=== PATIENT | male | born 1950 | race American Indian/Alaskan Native ===

== ENCOUNTER 2017-12-11 16:20 | Emergency (ER) | payer MEDICARE ==
[2017-12-11] MEDS ORDERED: NACL 0.9% 1000 ML 1,000 ML IV ONE (16:40)
--- NOTE | 2017-12-11 16:47 | Emergency Department Report ---
ED Altered Mental Status HPI - General Stated Complaint: POSS CVA Time Seen by Provider: 12/11/17 16:26 - History of Present Illness Initial Comments: 67-year-old man brought in by EMS for altered mental status, with report that patient was found at local auto repair shop, having just picked up his car, but had not left, and after 30 minutes, was found alone in his car unresponsive and diaphoretic. Patient is a diabetic, takes insulin, but had not recently been ill. Further, incident occurred in the middle of the day, which was hot and emanuel as well. EMS found blood sugar to be 58, gave patient 25 g of glucose intravenously, with patient rousing substantially by time of arrival in the emergency department. 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 He takes 20 units of long-acting insulin twice daily, does not take any mealtime doses. He took his usual dose of 20 units this morning, as well as his normal meal. He denies any other alterations or any other acute symptoms, has no pain, no shortness of breath, does not feel particularly weak. MD Complaint: altered mental status -: Sudden Time: 15:00 Severity: severe Context: diabetes Associated Symptoms: denies other symptoms Treatments Prior to Arrival: glucose, IV fluid, oxygen - Related Data Home Medications Medication Instructions Recorded Confirmed Last Taken Amaryl 4 mg PO BID 10/07/14 10/07/14 Unknown Aspirin 81 mg PO QDAY 10/07/14 10/07/14 Unknown Cialis 20 mg PO PRN PRN 10/07/14 10/07/14 Unknown Cozaar 100 mg PO QDAY 10/07/14 10/07/14 Unknown Crestor 20 mg PO QDAY 10/07/14 10/07/14 Unknown Lantus 15 unit SUB-Q QPM 10/07/14 10/07/14 Unknown Norvasc 10 mg PO QDAY 10/07/14 10/07/14 Unknown NovoLOG 100 UNITS/ML 7 unit SUB-Q TID 10/07/14 10/07/14 Unknown Plavix 75 mg PO QDAY 10/07/14 10/07/14 Unknown Terazosin 10 mg PO QDAY 10/07/14 10/07/14 Unknown Previous Rx's Medication Instructions Recorded Last Taken Type Aspirin [Aspirin BABY CHEW TAB] 81 mg PO QDAY #30 tab.chew 10/09/14 Unknown Rx Clopidogrel [Plavix] 75 mg PO QDAY #30 tablet 10/09/14 Unknown Rx Insulin Glargine [Lantus VIAL] 15 units SUB-Q QHS #30 units 10/09/14 Unknown Rx Terazosin [Hytrin] 10 mg PO QDAY capsule 10/09/14 Unknown Rx amLODIPine [Norvasc] 10 mg PO DAILY #30 tablet 10/09/14 Unknown Rx Allergies Allergy/AdvReac Type Severity Reaction Status Date / Time lisinopril Allergy Swelling Verified 10/07/14 10:29 atorvastatin calcium AdvReac MYALGIA Verified 10/07/14 10:29 [From Lipitor] ED Review of Systems ROS: Stated complaint: POSS CVA Other details as noted in HPI Comment: All other systems reviewed and negative Constitutional: diaphoresis, weakness. denies: chills, fever ENT: denies: ear pain, throat pain Respiratory: denies: cough, shortness of breath, wheezing Cardiovascular: denies: chest pain, palpitations Endocrine: no symptoms reported Gastrointestinal: denies: abdominal pain, nausea, diarrhea Genitourinary: denies: urgency, dysuria Musculoskeletal: denies: back pain, joint swelling, arthralgia Skin: denies: rash, lesions Neurological: denies: headache, weakness, paresthesias Psychiatric: denies: anxiety, depression ED Past Medical Hx - Past Medical History Hx Hypertension: Yes Hx CVA: Yes (no residual, no limitations) Hx Diabetes: Yes Additional medical history: hyperlipidemia - Surgical History Additional Surgical History: INTESTIONAL SURGERY-COLOSTOMY WITH REVERSAL (D/T CONSTIPATION) - Social History Smoking Status: Never Smoker - Medications Home Medications: Home Medications Medication Instructions Recorded Confirmed Last Taken Type Amaryl 4 mg PO BID 10/07/14 10/07/14 Unknown History Aspirin 81 mg PO QDAY 10/07/14 10/07/14 Unknown History Cialis 20 mg PO PRN PRN 10/07/14 10/07/14 Unknown History Cozaar 100 mg PO QDAY 10/07/14 10/07/14 Unknown History Crestor 20 mg PO QDAY 10/07/14 10/07/14 Unknown History Lantus 15 unit SUB-Q QPM 10/07/14 10/07/14 Unknown History Norvasc 10 mg PO QDAY 10/07/14 10/07/14 Unknown History NovoLOG 100 UNITS/ML 7 unit SUB-Q TID 10/07/14 10/07/14 Unknown History Plavix 75 mg PO QDAY 10/07/14 10/07/14 Unknown History Terazosin 10 mg PO QDAY 10/07/14 10/07/14 Unknown History Aspirin [Aspirin BABY CHEW TAB] 81 mg PO QDAY #30 tab.chew 10/09/14 Unknown Rx Clopidogrel [Plavix] 75 mg PO QDAY #30 tablet 10/09/14 Unknown Rx Insulin Glargine [Lantus VIAL] 15 units SUB-Q QHS #30 units 10/09/14 Unknown Rx Terazosin [Hytrin] 10 mg PO QDAY capsule 10/09/14 Unknown Rx amLODIPine [Norvasc] 10 mg PO DAILY #30 tablet 10/09/14 Unknown Rx ED Physical Exam - General General appearance: alert (on examination after glucose treatment), in no apparent distress - Head Head exam: Present: atraumatic, normocephalic - Eye Eye exam: Present: PERRL, EOMI - ENT ENT exam: Present: mucous membranes dry - Neck Neck exam: Present: normal inspection - Respiratory Respiratory exam: Present: normal lung sounds bilaterally. Absent: respiratory distress, wheezes, rales, rhonchi - Cardiovascular Cardiovascular Exam: Present: regular rate, normal heart sounds - GI/Abdominal GI/Abdominal exam: Present: soft. Absent: tenderness - Rectal Rectal exam: Present: deferred - Extremities Exam Extremities exam: Present: normal inspection, full ROM. Absent: tenderness - Back Exam Back exam: Present: normal inspection - Neurological Exam Neurological exam: Present: alert, oriented X3, CN II-XII intact. Absent: motor sensory deficit - Psychiatric Psychiatric exam: Present: normal affect, normal mood - Skin Skin exam: Present: warm, dry, intact. Absent: diaphoretic, erythema, petechiae , ecchymosis - Level of Consciousness 1a. Level of Consciousness: alert - LOC Questions 1b. LOC Questions: answers correctly - LOC Command 1c. LOC Commands: performs tasks correctly - Best Gaze 2. Best Gaze: normal - Visual 3. Visual: no visual loss - Facial Palsy 4. Facial Palsy: normal symmetrical movement - Motor Arm 5b. Motor Arm Right: no drift 5a. Motor Arm Left: no drift - Motor Leg 6a. Motor Leg Left: no drift 6b. Motor Leg Right: no drift - Limb Ataxia 7. Limb Ataxia: absent - Sensory 8. Sensory: normal - Best Language 9. Best Language: no aphasia - Dysarthria 10. Dysarthria: normal - Extinction and Inattention 11. Extinction/Inattention: no abnormality - Scoring Total Score: 0 Stroke Severity: No Stroke Symptoms ED Course Vital Signs 12/11/17 12/11/17 12/11/17 16:24 16:30 16:36 Temperature 36.4 C Pulse Rate 65 63 70 Respiratory 26 H 22 24 Rate Blood Pressure 174/91 196/99 O2 Sat by Pulse 98 98 Oximetry 12/11/17 12/11/17 12/11/17 17:08 17:30 18:00 Temperature Pulse Rate 63 68 79 Respiratory 27 H 14 14 Rate Blood Pressure O2 Sat by Pulse 100 96 100 Oximetry 12/11/17 12/11/17 12/11/17 18:30 19:00 19:38 Temperature Pulse Rate 80 70 Respiratory 14 22 Rate Blood Pressure 153/74 153/74 O2 Sat by Pulse 99 98 97 Oximetry - Reevaluation(s) Reevaluation #1: 12/11/17 20:00 On repeat examination at 1900 hrs., Patient neurologically and physically stable on recheck, being alert and oriented, with good recall, normal neurologic motor function all extremities and face, and physiologically stable. Laboratory Evaluation results reviewed, and patient was fed several servings of juice, and given a meal as well. He voices no complaints. On repeat examination at 2000 hrs., patient remains awake, alert, smiling, voices no complaints, and repeat blood sugar is 122. Patient is stable for discharge, advised to withhold insulin tonight, eat another snack in the evening , and he can resume his insulin in the morning if his blood glucose is over 150- 200. Physician recheck in the next 3-4 days recommended. - Lab Data Result diagrams: 12/11/17 17:02 12/11/17 17:02 Lab Results 12/11/17 12/11/17 12/11/17 Range/Units 16:34 17:02 17:02 WBC 5.5 (4.5-11.0) K/mm3 RBC 5.70 H (3.65-5.03) M/mm3 Hgb 16.4 H (11.8-15.2) gm/dl Hct 47.5 H (35.5-45.6) % MCV 83 L (84-94) fl MCH 29 (28-32) pg MCHC 35 H (32-34) % RDW 15.1 (13.2-15.2) % Plt Count 153 (140-440) K/mm3 Lymph % (Auto) 17.0 (13.4-35.0) % Morton % (Auto) 14.7 H (0.0-7.3) % Eos % (Auto) 0.4 (0.0-4.3) % Baso % (Auto) 0.4 (0.0-1.8) % Lymph # 0.9 L (1.2-5.4) K/mm3 Morton # 0.8 (0.0-0.8) K/mm3 Eos # 0.0 (0.0-0.4) K/mm3 Baso # 0.0 (0.0-0.1) K/mm3 Seg Neutrophils % 67.5 (40.0-70.0) % Seg Neutrophils # 3.7 (1.8-7.7) K/mm3 PT 16.4 H (12.2-14.9) Sec. INR 1.25 H (0.87-1.13) Sodium (137-145) mmol/L Potassium (3.6-5.0) mmol/L Chloride (98-107) mmol/L Carbon Dioxide (22-30) mmol/L Anion Gap mmol/L BUN (9-20) mg/dL Creatinine (0.8-1.5) mg/dL Estimated GFR ml/min BUN/Creatinine Ratio % Glucose (75-100) mg/dL POC Glucose 117 H (70-105) Lactic Acid (0.7-2.0) mmol/L Calcium (8.4-10.2) mg/dL Total Bilirubin (0.1-1.2) mg/dL AST (5-40) units/L ALT (7-56) units/L Alkaline Phosphatase (35-129) units/L Ammonia (25-60) umol/L Total Creatine Kinase (55-170) units/L Troponin T (0.00-0.029) ng/mL Total Protein (6.3-8.2) g/dL Albumin (3.9-5) g/dL Albumin/Globulin Ratio % TSH (0.270-4.200) mlU/mL Salicylates (2.8-20.0) mg/dL Acetaminophen (10.0-30.0) ug/mL Plasma/Serum Alcohol (0-0.07) % 12/11/17 12/11/17 12/11/17 Range/Units 17:02 17:02 17:02 WBC (4.5-11.0) K/mm3 RBC (3.65-5.03) M/mm3 Hgb (11.8-15.2) gm/dl Hct (35.5-45.6) % MCV (84-94) fl MCH (28-32) pg MCHC (32-34) % RDW (13.2-15.2) % Plt Count (140-440) K/mm3 Lymph % (Auto) (13.4-35.0) % Morton % (Auto) (0.0-7.3) % Eos % (Auto) (0.0-4.3) % Baso % (Auto) (0.0-1.8) % Lymph # (1.2-5.4) K/mm3 Morton # (0.0-0.8) K/mm3 Eos # (0.0-0.4) K/mm3 Baso # (0.0-0.1) K/mm3 Seg Neutrophils % (40.0-70.0) % Seg Neutrophils # (1.8-7.7) K/mm3 PT (12.2-14.9) Sec. INR (0.87-1.13) Sodium 135 L (137-145) mmol/L Potassium 3.6 (3.6-5.0) mmol/L Chloride 96.8 L (98-107) mmol/L Carbon Dioxide 26 (22-30) mmol/L Anion Gap 16 mmol/L BUN 22 H (9-20) mg/dL Creatinine 1.1 (0.8-1.5) mg/dL Estimated GFR > 60 ml/min BUN/Creatinine Ratio 20 % Glucose 115 H (75-100) mg/dL POC Glucose (70-105) Lactic Acid 1.80 (0.7-2.0) mmol/L Calcium 8.9 (8.4-10.2) mg/dL Total Bilirubin 0.80 (0.1-1.2) mg/dL AST 36 (5-40) units/L ALT 22 (7-56) units/L Alkaline Phosphatase 52 (35-129) units/L Ammonia 71.0 H (25-60) umol/L Total Creatine Kinase 161 (55-170) units/L Troponin T < 0.010 (0.00-0.029) ng/mL Total Protein 7.5 (6.3-8.2) g/dL Albumin 3.9 (3.9-5) g/dL Albumin/Globulin Ratio 1.1 % TSH (0.270-4.200) mlU/mL Salicylates (2.8-20.0) mg/dL Acetaminophen (10.0-30.0) ug/mL Plasma/Serum Alcohol (0-0.07) % 12/11/17 12/11/17 12/11/17 Range/Units 17:02 17:02 17:02 WBC (4.5-11.0) K/mm3 RBC (3.65-5.03) M/mm3 Hgb (11.8-15.2) gm/dl Hct (35.5-45.6) % MCV (84-94) fl MCH (28-32) pg MCHC (32-34) % RDW (13.2-15.2) % Plt Count (140-440) K/mm3 Lymph % (Auto) (13.4-35.0) % Morton % (Auto) (0.0-7.3) % Eos % (Auto) (0.0-4.3) % Baso % (Auto) (0.0-1.8) % Lymph # (1.2-5.4) K/mm3 Morton # (0.0-0.8) K/mm3 Eos # (0.0-0.4) K/mm3 Baso # (0.0-0.1) K/mm3 Seg Neutrophils % (40.0-70.0) % Seg Neutrophils # (1.8-7.7) K/mm3 PT (12.2-14.9) Sec. INR (0.87-1.13) Sodium (137-145) mmol/L Potassium (3.6-5.0) mmol/L Chloride (98-107) mmol/L Carbon Dioxide (22-30) mmol/L Anion Gap mmol/L BUN (9-20) mg/dL Creatinine (0.8-1.5) mg/dL Estimated GFR ml/min BUN/Creatinine Ratio % Glucose (75-100) mg/dL POC Glucose (70-105) Lactic Acid (0.7-2.0) mmol/L Calcium (8.4-10.2) mg/dL Total Bilirubin (0.1-1.2) mg/dL AST (5-40) units/L ALT (7-56) units/L Alkaline Phosphatase (35-129) units/L Ammonia (25-60) umol/L Total Creatine Kinase (55-170) units/L Troponin T (0.00-0.029) ng/mL Total Protein (6.3-8.2) g/dL Albumin (3.9-5) g/dL Albumin/Globulin Ratio % TSH 4.030 (0.270-4.200) mlU/mL Salicylates < 0.3 L (2.8-20.0) mg/dL Acetaminophen < 5.0 L (10.0-30.0) ug/mL Plasma/Serum Alcohol (0-0.07) % 12/11/17 12/11/17 Range/Units 17:02 18:53 WBC (4.5-11.0) K/mm3 RBC (3.65-5.03) M/mm3 Hgb (11.8-15.2) gm/dl Hct (35.5-45.6) % MCV (84-94) fl MCH (28-32) pg MCHC (32-34) % RDW (13.2-15.2) % Plt Count (140-440) K/mm3 Lymph % (Auto) (13.4-35.0) % Morton % (Auto) (0.0-7.3) % Eos % (Auto) (0.0-4.3) % Baso % (Auto) (0.0-1.8) % Lymph # (1.2-5.4) K/mm3 Morton # (0.0-0.8) K/mm3 Eos # (0.0-0.4) K/mm3 Baso # (0.0-0.1) K/mm3 Seg Neutrophils % (40.0-70.0) % Seg Neutrophils # (1.8-7.7) K/mm3 PT (12.2-14.9) Sec. INR (0.87-1.13) Sodium (137-145) mmol/L Potassium (3.6-5.0) mmol/L Chloride (98-107) mmol/L Carbon Dioxide (22-30) mmol/L Anion Gap mmol/L BUN (9-20) mg/dL Creatinine (0.8-1.5) mg/dL Estimated GFR ml/min BUN/Creatinine Ratio % Glucose (75-100) mg/dL POC Glucose 87 (70-105) Lactic Acid (0.7-2.0) mmol/L Calcium (8.4-10.2) mg/dL Total Bilirubin (0.1-1.2) mg/dL AST (5-40) units/L ALT (7-56) units/L Alkaline Phosphatase (35-129) units/L Ammonia (25-60) umol/L Total Creatine Kinase (55-170) units/L Troponin T (0.00-0.029) ng/mL Total Protein (6.3-8.2) g/dL Albumin (3.9-5) g/dL Albumin/Globulin Ratio % TSH (0.270-4.200) mlU/mL Salicylates (2.8-20.0) mg/dL Acetaminophen (10.0-30.0) ug/mL Plasma/Serum Alcohol < 0.01 (0-0.07) % - EKG Data -: EKG Interpreted by Nv EKG shows normal: sinus rhythm, QRS complexes, ST-T waves (old ST elevations, anterior precordial leads) Rate: normal When compared to previous EKG there are: no significant change - Radiology Data Radiology results: report reviewed (CT scan of the brain shows mild cerebral atrophy, no intraventricular hemorrhage, no mass effect, and no signs of acute stroke.) Chest x-ray is unremarkable, showing no acute cardiopulmonary abnormality. - Medical Decision Making Patient had an isolated hypoglycemic episode, being an insulin-dependent diabetic, cause not entirely clear, but family members reports that patient eating habits or less reliable than he reports. It may be that he did not eat sufficient amounts. In any case, he has recovered normally, its back to his neurologic and physical baseline, has no complaints, and is normal neurologically. He is stable for discharge home, glucose was rechecked at 122, will be advised to skip his evening insulin, and to check his blood sugars in the morning, but may resume insulin once his blood glucose levels are higher than 200. - Differential Diagnosis hypoglycemia, stroke, myocardial infarction, heat exhaustion - Core Measures AMI Core Measures Followed: Yes - NEXUS Criteria Focal neurological deficit present: No Midline spinal tenderness present: No Altered level of consciousness: Yes Intoxication present: No Distracting injury present: No (me) NEXUS results: C-Spine cannot be cleared clinically by these results. Imaging is required. Critical Care Time: No Critical care attestation.: If time is entered above; I have spent that time in minutes in the direct care of this critically ill patient, excluding procedure time. ED Disposition Clinical Impression: Hypoglycemia due to insulin Disposition: DC-01 TO HOME OR SELFCARE Is pt being admited?: No Does the pt Need Aspirin: No Condition: Stable Instructions: Non-diabetic Hypoglycemia (ED) Additional Instructions: You have recovered from an episode of very low blood sugar. Your blood glucose at time of discharge was 122, and your stable to go home. You should have an additional serving of juice and another snack before you go to bed. Check your blood glucose in the morning, and you may resume her insulin if the glucose level in the morning is over 200. Otherwise, hold insulin levels until blood glucose is consistently over 200. Rest, avoid significant physical activity, avoid exertion and hot sunshine for prolonged periods of time. Have recheck by your doctor in 3-4 days, and return to the emergency department if he have any recurrent symptoms. Time of Disposition: 20:07
[2017-12-11 17:18] LABS: Basophils % (Auto) 0.4 % (0.0-1.8); Eosinophils % (Auto) 0.4 % (0.0-4.3); Hematocrit 47.5 % (35.5-45.6); Hemoglobin 16.4 gm/dl (11.8-15.2); Lymphocytes # (Auto) 0.9 K/mm3 (1.2-5.4); Mean Corpuscular HGB Conc 35 % (32-34); Mean Corpuscular Hemoglobin 29 pg (28-32); Mean Corpuscular Volume 83 fl (84-94); Monocytes # (Auto) 0.8 K/mm3 (0.0-0.8); Monocytes % (Auto) 14.7 % (0.0-7.3); Platelet Count 153 K/mm3 (140-440); Red Cell Distribution Width 15.1 % (13.2-15.2)
[2017-12-11 17:25] LABS: INR 1.25 (0.87-1.13)
--- NOTE | 2017-12-11 17:29 | Cat Scan Report ---
FINAL REPORT PROCEDURE: CT head without contrast. TECHNIQUE: Computerized tomography of the head was performed without contrast material. HISTORY: Altered mental status. COMPARISON: No prior studies are available for comparison. FINDINGS: There is mild cerebral atrophy. There is mild evidence of chronic ischemic white matter disease. There are some tiny old lacunar infarcts in the basal ganglia. There are no mass lesions. There is no intracranial hemorrhage. The calvarium appears intact. The mastoid air cells and visualized paranasal sinuses are well aerated. IMPRESSION: Mild cerebral atrophy and chronic ischemic changes as described. No evidence of acute disease.
[2017-12-11 17:37] LABS: Alanine Aminotransferase 22 units/L (7-56); Albumin 3.9 g/dL (3.9-5); BUN/Creatinine Ratio 20; Blood Urea Nitrogen 22 mg/dL (9-20); Calcium 8.9 mg/dL (8.4-10.2); Hemolysis Index 22
--- NOTE | 2017-12-11 18:40 | XRay Report ---
FINAL REPORT EXAM: XR CHEST 1V AP HISTORY: Altered Mental Status TECHNIQUE: AP portable view of the chest. PRIORS: None. FINDINGS: The cardiomediastinal silhouette appears normal. The lungs are clear. The bones and soft tissues are unremarkable. IMPRESSION: No evidence of acute cardiopulmonary disease.
[2017-12-11 20:06] LABS: Bilirubin,Urine NEG (Negative); Blood,Urine NEG (Negative); Color,Urine Yellow (Yellow); Hyaline Casts,Urine 1 /LPF; Mucus,Urine FEW /HPF; Protein,Urine <15 mg/dL mg/dL (Negative)
[2017-12-11 20:25] LABS: Amphetamine Screen,Urine PRESUMPTIVE NEGATIVE; Benzodiazepines Screen,Urine PRESUMPTIVE NEGATIVE; Cannabinoid Screen,Urine PRESUMPTIVE NEGATIVE; Cocaine Screen,Urine PRESUMPTIVE NEGATIVE; Methadone Screen,Urine PRESUMPTIVE NEGATIVE; Opiate Screen,Urine PRESUMPTIVE NEGATIVE
[2017-12-11 21:06] VITALS: BP 166/79
== END 2017-12-11 20:00 | disposition home or self-care (01) ==
LOC: ED 16:20
DX: E11.649 Type 2 diabetes mellitus with hypoglycemia without coma (principal); R41.82 Altered mental status, unspecified; I10 Essential (primary) hypertension; Z86.73 Personal history of transient ischemic attack (TIA), and cerebral infarction without residual deficits; Z79.4 Long term (current) use of insulin
CPT/HCPCS: 36415; 70450; 71045; 80053; 80307; 81001; 82140; 82550; 82962; 84443; 84484; 85025; 85610; 87086; 96360; 99285; G0480; J7030; 80320; 93005; 93010